=== PATIENT | male | born 1970 | race Two or more races ===

== ENCOUNTER 2020-07-20 14:55 | Emergency (ER) | payer OTHER ==
--- NOTE | 2020-07-20 15:27 | EDM.PDOC ---
ED HPI GENERAL MEDICAL PROBLEM - General Chief Complaint: Head Injury Stated Complaint: HIT HEAD/NOSE WAS BLEEDING Time Seen by Provider: 07/20/20 15:14 Source of Information: Reports: Patient History Limitations: Reports: No Limitations - History of Present Illness INITIAL COMMENTS - FREE TEXT/NARRATIVE: Jerrica is a 49 year old presents to ER with complaints of a headache, nose bleed and distorted vision. was on his lunch break and slipped on the ice and fell back and hit the back of his head. He had no loss of consciousness, nauseated but no vomiting. States "vision feels off". No numbness, tingling or weakness in his extremities. had bloody nose immediately and it did stop on its own. Went home to shower and presented here. GCS 15 Onset: Today, Sudden Duration: Minutes: Location: Reports: Head Quality: Reports: Ache Severity: Moderate Associated Symptoms: Reports: Headaches, Nausea/Vomiting. Denies: Confusion, Fever/Chills, Malaise, Shortness of Breath, Syncope, Weakness Posterior Head Pain Score (Numeric/FACES): 5 - Related Data Allergies Allergy/AdvReac Type Severity Reaction Status Date / Time No Known Allergies Allergy Verified 07/20/20 15:14 Home Meds: Home Meds Insulin Detemir [Levemir Flextouch] 16 unit SUBCUT DAILY 07/20/20 [History] atorvaSTATin [Lipitor] 1 tab PO DAILY 07/20/20 [History] lisinopriL [Lisinopril] 1 tab PO DAILY 07/20/20 [History] metFORMIN [Glucophage XR] 1,000 mg PO BID 07/20/20 [History] Past Medical History Cardiovascular History: Reports: High Cholesterol, Hypertension Endocrine/Metabolic History: Reports: Diabetes, Type II Social & Family History - Tobacco Use Tobacco Use Status *Q: Unknown Ever Used Tobacco ED ROS GENERAL - Review of Systems Review Of Systems: See Below Constitutional: Denies: Fever, Chills, Malaise, Weakness, Fatigue, Decreased Appetite HEENT: Reports: Nosebleed, Vision Change. Denies: Ear Pain, Throat Pain Respiratory: Denies: Shortness of Breath, Cough Cardiovascular: Denies: Chest Pain, Edema, Lightheadedness Endocrine: Denies: Fatigue GI/Abdominal: Reports: Nausea. Denies: Abdominal Pain, Vomiting : Reports: No Symptoms Musculoskeletal: Reports: No Symptoms Skin: Reports: No Symptoms Neurological: Reports: Headache ED EXAM, HEAD INJURY - Physical Exam Exam: See Below Exam Limited By: No Limitations General Appearance: Alert, WD/WN, No Apparent Distress Head: Normocephalic, Scalp Hematoma Eyes: Bilateral Eye: EOMI, PERRL Ears: Normal External Exam, Normal TMs Throat/Mouth: Normal Inspection, Normal Oropharynx Neck: Non-Tender, Full Range of Motion, Normal Alignment Respiratory: No Respiratory Distress, Lungs Clear, Normal Breath Sounds Cardiovascular: Regular Rate, Rhythm GI/Abdominal Exam: Normal Bowel Sounds, Soft, Non-Tender Extremities: Normal Inspection, No Pedal Edema Neurologic: art historian II-XII nml As Tested, No Motor/Sensory Deficits, Alert, Normal Mood/Affect, Oriented x 3 - [place] Coma Score Best Eye Response (Angélica): (4) Open Spontaneously Best Verbal Response (Angélica): (5) Oriented Best Motor Response (Angélica): (6) Obeys Commands Course - Vital Signs Last Recorded V/S: Last Vital Signs Temp 98.6 F 07/20/20 15:24 Pulse 82 07/20/20 16:31 Resp 20 07/20/20 15:24 BP 139/93 H 07/20/20 16:31 Pulse Ox 96 07/20/20 15:24 - Orders/Labs/Meds Orders: Active Orders 24 hr Category Date Time Status Head wo Cont [CT] Stat Exams 07/20/20 15:03 Taken - Re-Assessments/Exams Free Text/Narrative Re-Assessment/Exam: 07/20/20 16:33 CT scan of head is negative. Blood pressure is improving. Patient up and ambulating. WIll discharge home. Departure - Departure Time of Disposition: 16:33 Disposition: Home, Self-Care 01 Condition: Good Clinical Impression: Concussion with no loss of consciousness - Discharge Information *PRESCRIPTION DRUG MONITORING PROGRAM REVIEWED*: No *COPY OF PRESCRIPTION DRUG MONITORING REPORT IN PATIENT SUSHANT: No Instructions: Concussion, Adult, [id number] Forms: ED Department Discharge Additional Instructions: 1. Rest 2. Tylenol for discomfort 3. Monitor blood pressure and report concerns. 4. Head injury instructions~ return if any concerns, changes 5. Call with any concerns. Sepsis Event Note (ED) - Focused Exam Vital Signs: Vital Signs Temp Pulse Resp BP Pulse Ox 07/20/20 16:31 82 139/93 H 07/20/20 15:24 98.6 F 121 H 20 161/119 H 96 - My Orders Last 24 Hours: My Active Orders 07/20/20 15:03 Head wo Cont [CT] Stat - Assessment/Plan Last 24 Hours: My Active Orders 07/20/20 15:03 Head wo Cont [CT] Stat
== END 2020-07-20 16:42 | disposition home or self-care (01) ==
LOC: CC.ED 14:55
DX: S06.0X0A Concussion without loss of consciousness, initial encounter (principal); E78.00 Pure hypercholesterolemia, unspecified; I10 Essential (primary) hypertension; E11.9 Type 2 diabetes mellitus without complications; Z79.4 Long term (current) use of insulin; Z79.899 Other long term (current) drug therapy; W00.0XXA Fall on same level due to ice and snow, initial encounter
CPT/HCPCS: 70450; 99283-25

== ENCOUNTER → 2021-07-22 | Day surgery (SDC) | payer OTHER ==
[~2021-07-22] MED LIST: Flumazenil 0.1 MG/ML 10 ML MDV ONE; Ketamine 200 MG/20 ML MDV ONE; Lactated Ringers 1,000 ML IV SCH; Midazolam 1 MG/ML 2 ML SDV ONE; Propofol 200 MG/20 ML SDV ONE; fentaNYL 100 MCG/2 ML SDV ONE
[2021-07-22 08:53] VITALS: BP 126/84; PULSE 61
== END ==
LOC: MERGE 06:24 → CC.SDS 06:24
PROVIDERS: ATTEND Family Medicine
DX: Z12.11 Encounter for screening for malignant neoplasm of colon (principal); I10 Essential (primary) hypertension; E11.9 Type 2 diabetes mellitus without complications; E78.5 Hyperlipidemia, unspecified; Z79.4 Long term (current) use of insulin; Z79.899 Other long term (current) drug therapy; Z98.890 Other specified postprocedural states; Z87.891 Personal history of nicotine dependence; Z79.84 Long term (current) use of oral hypoglycemic drugs
CPT/HCPCS: 00812; J2250; J2704; J3010; J7120

== ENCOUNTER → 2021-08-05 | Day surgery (SDC) | payer OTHER ==
[~2021-08-05] MED LIST changes: -Lactated Ringers 1,000 ML IV SCH
[2021-08-05] MEDS: Lactated Ringers 1,000 ML IV SCH (07:52)
== END ==
LOC: MERGE 07:00 → CC.SDS 07:17
PROVIDERS: ATTEND Family Medicine
DX: Z12.11 Encounter for screening for malignant neoplasm of colon (principal); D12.2 Benign neoplasm of ascending colon; K57.30 Diverticulosis of large intestine without perforation or abscess without bleeding; F17.210 Nicotine dependence, cigarettes, uncomplicated; E11.9 Type 2 diabetes mellitus without complications; I10 Essential (primary) hypertension; E78.5 Hyperlipidemia, unspecified; E66.9 Obesity, unspecified; Z79.899 Other long term (current) drug therapy; Z98.890 Other specified postprocedural states; Z79.84 Long term (current) use of oral hypoglycemic drugs
CPT/HCPCS: 00812; J2250; J2704; J3010; J7120

== ENCOUNTER 2021-10-14 08:16 | Emergency (ER) | payer OTHER ==
[2021-10-14] MEDS: Aspirin 81 MG Tab.Chew PO ONE (08:28)
[2021-10-14 09:07] LABS: CHLORIDE,CL 101 mEq/L (98-106); SODIUM,NA 137 mEq/L (136-145)
== END 2021-10-14 10:00 | disposition home or self-care (01) ==
LOC: CC.ED 08:16
DX: R07.81 Pleurodynia (principal); J06.9 Acute upper respiratory infection, unspecified; E78.00 Pure hypercholesterolemia, unspecified; I10 Essential (primary) hypertension; E11.9 Type 2 diabetes mellitus without complications; Z79.4 Long term (current) use of insulin; Z79.899 Other long term (current) drug therapy; Z20.822 Contact with and (suspected) exposure to COVID-19
CPT/HCPCS: 36415; 71046; 80053; 82550; 83615; 83690; 83735; 84484; 85025; 85379; 85610; 93005; 99284; 99285-25; A9270-GY; U0002

== ENCOUNTER 2021-10-25 11:24 | Observation (INO) | payer OTHER ==
[2021-10-25] MEDS ORDERED: Aspirin 81 MG Tab.Chew PO ONE (12:00)
[2021-10-25] MEDS ORDERED: Acetaminophen 325 MG Tab PO ONE (12:05)
[2021-10-25 12:10] LABS: CHLORIDE,CL 100 mEq/L (98-106); SODIUM,NA 137 mEq/L (136-145)
[2021-10-25] MEDS ORDERED: Morphine 2 MG/ML SYRINGE IVPUSH ONE (12:21)
[2021-10-25] MEDS ORDERED: Ondansetron 4 MG/2 ML SDV IVPUSH ONE (12:21)
[2021-10-25] MEDS ORDERED: Potassium Chloride 10 MEQ Tab.ER PO ONE (12:30)
[2021-10-25 12:48] LABS: CORONAVIRUS COVID-19 NAA NEGATIVE (NEGATIVE); RESPIRATORY SYNCYTIAL VIR NAA NEGATIVE (NEGATIVE)
[2021-10-25] MEDS ORDERED: Glucagon,Human Recombinant 1 MG Vial IM PRN (13:42)
[2021-10-25] MEDS ORDERED: 50% Dextrose in Water 50 ML Syringe IVPUSH PRN (13:42)
[2021-10-25] MEDS ORDERED: Ondansetron 4 MG/2 ML SDV IVPUSH PRN (13:51)
[2021-10-25 13:54] LABS: HEMOGLOBIN A1C 8.9 % (4.8-5.6)
[2021-10-25] MEDS ORDERED: Acetaminophen 325 MG Tab PO PRN (13:55)
[2021-10-25] MEDS ORDERED: Morphine 2 MG/ML SYRINGE IVPUSH PRN (13:56)
[2021-10-25] MEDS: Insulin Regular, Human 100 Units/ML 3 ML Vial SUBCUT SCH ×2 (17:52→22:45)
[2021-10-25] MEDS: METFORMIN HCL 1000 MG PO SCH (17:53)
[2021-10-26] MEDS: METFORMIN HCL 1000 MG PO SCH (07:36)
[2021-10-26] MEDS: Insulin Regular, Human 100 Units/ML 3 ML Vial SUBCUT SCH ×2 (07:42→11:37)
[2021-10-26] MEDS ORDERED: ATORVASTATIN CALCIUM 40 MG PO SCH (08:00)
[2021-10-26] MEDS ORDERED: Non-Formulary Medication 1 Each (Sitagliptin 100 MG Tablet) PO SCH (08:00)
[2021-10-26 08:07] LABS: CHLORIDE,CL 103 mEq/L (98-106); SODIUM,NA 137 mEq/L (136-145)
[2021-10-26] MEDS ORDERED: SITAGLIPTIN 100 MG PO SCH ×2 (08:45→09:00)
== END 2021-10-26 15:20 | disposition home or self-care (01) ==
LOC: CC.ED 11:24 → CC.MS 12:44 → UNDOADMOB 12:44 → CC.MS 13:33
PROVIDERS: ADMIT Nurse Practitioner Family; ATTEND Nurse Practitioner Family
DX: R07.9 Chest pain, unspecified (principal); E78.5 Hyperlipidemia, unspecified; E11.65 Type 2 diabetes mellitus with hyperglycemia; Z79.4 Long term (current) use of insulin; I10 Essential (primary) hypertension; E78.00 Pure hypercholesterolemia, unspecified; Z79.899 Other long term (current) drug therapy; Z20.822 Contact with and (suspected) exposure to COVID-19
CPT/HCPCS: 0241U; 36415; 71046; 80048; 80053; 80061; 81003; 82550; 82947; 83036; 83605; 83615; 83690; 83735; 84443; 84484; 85025; 85610; 86140; 87040; 93005; 96374; 96375; 99217; 99220; 99285-25; A9270-GY; G0378; J1815-GY; J2270; J2405